=== PATIENT | male | born 1960 | race Two or more races ===

== ENCOUNTER 2023-11-04 21:25 | Emergency (ER) | payer OTHER ==
[~2023-11-04] VITALS: Ht 172.7 cm; Wt 100.0 kg
[2023-11-04] MEDS ORDERED: IBUP-1455 PO (23:08)
[2023-11-04] MEDS ORDERED: CLIN300C70 PO (23:08)
[2023-11-05] MEDS ORDERED: PROM1SOL4 PO (01:26)
[2023-11-05 01:40] VITALS: BP 126/84; PULSE 70; RESP 16; TEMP 98.2; O2SAT 96
== END 2023-11-05 01:49 | disposition home or self-care (01) ==
LOC: ER 21:25
DX: K04.7 Periapical abscess without sinus (principal); Z88.0 Allergy status to penicillin